=== PATIENT | male | born 1975 | race Caucasian/White ===

== ENCOUNTER 2017-06-08 17:57 | Inpatient (IN) | payer OTHER ==
[~2017-06-08] VITALS: Ht 185.4 cm; Wt 99.8 kg
--- NOTE | ~2017-06-08 | PA ---
Unit #: [id number] #: [id number] Patient: YESENIA ORO [id number] [facility] [address] [place] [address] [id number] MR#: [id number] NAME: YESENIA ORO ROOM: 61 Age: 41 Sex: M Admission Date: 06/08/2017 : 1975 Date of Assessment: 06/09/2017 Attending Physician: Yung Bailey M.D. Admitting Physician: Yung Bailey M.D. Primary Care Physician: Primary Care Physician No PSYCHIATRIC ASSESSMENT IDENTIFYING INFORMATION The patient is a 41-year-old white male admitted with suicidal ideation. CHIEF COMPLAINT None given. INFORMANT Chart. Patient cannot be aroused for interview. HISTORY OF PRESENT ILLNESS The patient is a 41-year-old white male admitted to the [address] [place] [address] Unit after he had presented to this facility yesterday voicing positive suicidal ideation. The patient reports that he has had 2 recent deaths in his family which may have been a cause for his increased depressive symptoms. He reports a history of multiple previous suicide attempts stating that he has attempted to hang himself and overdose in the past. He was reporting that he was planning to hang himself when seen yesterday. The patient's current medications include Celexa, Seroquel, and gabapentin. He has a history of treatment at this facility, and when last hospitalized here was notable for his almost incessant med-seeking demanding that he will be given a prescription for Klonopin. When seen today, the patient is sleeping soundly and cannot be aroused for further interview. PAST PSYCHIATRIC HISTORY The patient is status post traumatic brain injury and has issues with short-term memory. PAST MEDICAL HISTORY Noncontributory apart from the traumatic brain injury. MEDICATIONS Zofran, Celexa, Seroquel XR, and gabapentin. ALLERGIES None reported. FAMILY HISTORY Noncontributory. SOCIAL HISTORY The patient lives with his . He is considered disabled secondary to his history of "bipolar disorder," alcohol dependence, and traumatic brain Unit #: [id number] #: [id number] Patient: YESENIA ORO injury. MENTAL STATUS EXAMINATION Examination at this time reveals the patient to be a soundly sleeping white male. Multiple attempts to arouse the patient are dexter unsuccessful. ASSETS AND LIABILITIES The patient's assets are to be assessed. Liabilities: Lack of resources. DIAGNOSTIC IMPRESSION 1. Bipolar disorder, depressed phase, per patient's history. 2. Mood disorder unspecified. 3. History of traumatic brain injury. TREATMENT PLAN The patient remains hospitalized for safety and stabilization for now. We will continue the patient's previously prescribed medications including Celexa, Seroquel, and gabapentin. Once the patient is better able to participate in interview, we will discuss and look at possible medication changes including reinitiation of BuSpar, increase in Celexa, and/or Seroquel, etc. ESTIMATED LENGTH OF STAY 5 to 7 days. Dictated by... Yung Bailey M.D. STEVE/feli TD: 06/09/2017 13:43 JOB #: [id number] PSYCHIATRIC ASSESSMENT Page 1 of 1 X Yung Bailey MD X PSYCHIATRIC ASSESSMENT
--- NOTE | ~2017-06-08 | HP ---
Unit #: [id number] #: [id number] Patient: ANNETTA ORO [id number] [place] [address] [id number] MR#: [id number] NAME: ANNETTA ORO ROOM: [facility] Age: 41 Sex: M Admission Date: 06/08/2017 : 1975 Attending Physician: Yung Bailey M.D. Admitting Physician: Yung Bailey M.D. Primary Care Physician: Primary Care Physician No HISTORY AND PHYSICAL HISTORY OF PRESENT ILLNESS Annetta is a 41-year-old male admitted to [address] [place] [address] with depression and verbalizing wanting to hurt himself. PAST MEDICAL HISTORY 1. History of alcohol abuse. 2. History of illicit substance abuse. 3. High blood pressure. 4. MR. PAST SURGICAL HISTORY Nothing reported. ALLERGIES No known drug allergies. SOCIAL HISTORY Drinks frequently and has a history of illicit substance abuse to include methamphetamine. FAMILY HISTORY Medically noncontributory. REVIEW OF SYSTEMS He does not answer all questions appropriately. There are no reports of nausea, vomiting or diarrhea. He has had no cough or increased temperature. CURRENT MEDICATIONS 1. Milk of Magnesia p.r.n. 2. Maalox p.r.n. 3. Tylenol p.r.n. 4. Zofran p.r.n. 5. Seroquel XR 150 mg q.h.s. 6. Neurontin 800 mg q.i.d. 7. Nicotine patch 21 mg daily. 8. Celexa 20 mg daily. PHYSICAL EXAMINATION GENERAL: Alert, well-nourished, in no apparent distress. VITAL SIGNS: Blood pressure 110/70, heart rate 80, respirations 16, temperature 98.6. WEIGHT: 220. Unit #: [id number] #: [id number] Patient: ANNETTA ORO HEIGHT: 6 feet 1 inch. SKIN: Warm and dry without rash or lesion. HEENT: Normocephalic. TMs not viewed. Oral and nasal passages clear. Conjunctivae clear. PERRLA. EOMs intact. NECK: Supple without lymphadenopathy or thyromegaly. HEART: Regular rate and rhythm without murmur. LUNGS: Clear. ABDOMEN: Soft, nontender. : Not done. EXTREMITIES: No evidence of cyanosis, clubbing or edema. Moves all without focal deficit. NEUROLOGICAL: Grossly within normal limits. Cranial Nerves: II: Visual mario are intact. III, IV AND : Extraocular movements are intact. Pupils are equal, round and reactive to light. V: Facial sensation is grossly normal. VII: Facial movements and expression are normal. VIII: Auditory acuity grossly intact. IX, X: Uvula is midline. Phonation is normal. XI: Patient shrugs shoulders and turns head normally. XII: Tongue protrudes in the midline. Sensory and Motor Function: Sensory and motor sensation is grossly normal. Motor: moves all extremities well. Coordination: Gait is normal. Deep Tendon Reflexes: Intact. IMPRESSION Psychiatric admission. RECOMMENDATIONS PSYCHIATRIC: Per psychiatrist. MEDICAL: See no contraindication to participate in facility's activities. MEDICAL PROGNOSIS Good. MEDICAL CONDITION Stable. Dictated by... Barbara Dickerson P.A.-C. for Landon Madrid/lanie TD: 06/09/2017 20:00 JOB #: [id number] HISTORY AND PHYSICAL Page 1 of 1 X Barbara Dickerson HISTORY AND PHYSICAL
--- NOTE | ~2017-06-08 | DS ---
Unit #: [id number] #: [id number] Patient: YESENIA ORO [id number] [facility] [address] [place] [address] [id number] I MR#: [id number] NAME: YESENIA ORO ROOM: 61 Age: 41 Sex: M Admission Date: 06/08/2017 : 1975 Discharge Date: 06/10/2017 Attending Physician: Yung Bailey M.D. Primary Care Physician: Primary Care Physician No DISCHARGE SUMMARY REASON FOR ADMISSION The patient is a 41-year-old white male admitted complaining of suicidal ideation. HOSPITAL COURSE The patient was admitted to the [facility] Unit and placed on suicide precautions. She was continued on previously prescribed medications including Celexa, Seroquel, Neurontin, and Vistaril. The patient could not be aroused for interview on his first day of hospitalization. Later on that date, the patient requested discharge from the hospital, but have not been interviewed by this physician, and was not felt appropriate for the patient to be discharged at that point. He agreed to remain in the hospital, and when seen by this physician on 06/10/2017 denied suicidal ideation, and requested discharge from the hospital. It is notable that the patient was not during this hospitalization med-seeking as he was during his previous stay in the hospital and was generally pleasant and cooperative in his interactions with peers and staff. Discharged was ordered as per the patient's request on 06/10/2017. FINAL DIAGNOSES 1. Bipolar disorder, depressed phase, per patient's history. 2. Mood disorder unspecified. 3. History of traumatic brain injury. DISPOSITION ON DISCHARGE The patient was discharged on the following medications: 1. Vistaril 50 mg q. 6 hours p.r.n. anxiety. 2. Seroquel XR 150 mg daily for mood stabilization. 3. Celexa 20 mg daily for depression. 4. Neurontin 800 mg 4 times daily for mood stabilization. DIET AND ACTIVITY No dietary or physical restrictions were placed on the patient at the time of discharge. FOLLOWUP Followup will take place through the auspices of [facility] resources. Dictated by... Yung Bailey M.D. Unit #: [id number] #: [id number] Patient: SHORTYYESENIA MANZANO TD: 06/10/2017 11:17 JOB #: [id number] DISCHARGE SUMMARY Page 1 of 1 X Yung Bailey MD DISCHARGE SUMMARY
[~2017-06-08 17:57] MED LIST: ALBUTEROL17 GM INH; AMOXICILLIN500 M1 PO; BENZONATATE PO; BUSPAR30 MG PO; CHLORPROMAZINE100 MG PO; DEPAKOTE PO; EFFEXOR; FLEXERIL PO; GABAPENTIN800 MG PO; KLONOPIN PO; LORTAB 10-5001 EACH PO; MEDROL PO; NEURONTIN; PRISTIQ50 MG PO; SEROQUEL PO; THORAZINE10 MG PO; TRAZODONE PO; TRILEPTAL; TRILEPTAL PO; TRILEPTAL600 MG PO; VICODIN 5/500 T1 TAB PO; WELLBUTRIN
[2017-06-09 12:45] LABS: BASOPHIL% 0.4 % (0-2.5); EOSINOPHIL# 0.2 X10e3 (0-0.7); EOSINOPHIL% 2.3 % (0.0-7.0); HEMATOCRIT 43.9 % (38.0-50.0); HEMOGLOBIN 15.1 gm/dL (13.0-16.0); LYMPHOCYTE# 1.7 X10e3 (1.0-3.5); LYMPHOCYTE% 16.7 % (17.0-45.0); MEAN CELL VOLUME 87.9 FL (83-96); MEAN CORPUSCULAR HEMOGLOBIN 30.2 PG (28-34); MEAN CORPUSCULAR HGB CONC 34.4 g/dL (30-36); MEAN PLATELET VOLUME 9.1 FL (6.5-11.5); MONOCYTE# 0.4 X10e3 (0-1.0); MONOCYTE% 3.9 % (3.0-12.0); NEUTROPHIL# 7.9 X10e3 (1.5-7.1); NEUTROPHIL% 76.7 % (40-75); PLATELET COUNT 193 X10e3 (140-420); RED CELL DISTRIBUTION WIDTH 14.2 % (11.0-15.5); WHITE BLOOD COUNT 10.3 X10e3 (4.0-10.5)
[2017-06-09 12:48] LABS: DIFF IND NO
[2017-06-09 13:07] LABS: ALBUMIN SERUM 3.6 g/dL (3.5-5.0); BILIRUBIN,TOTAL 0.5 mg/dL (0.2-2.0); CALCIUM SERUM 9.1 mg/dL (8.4-10.2); GLOM FILT RATE Estimated 91.8 mL/min (>60); POTASSIUM 4.1 mmol/L (3.5-5.1); PROTEIN TOTAL SERUM 6.1 g/dL (6.0-8.3)
== END 2017-06-10 13:10 | disposition home or self-care (01) | DRG 885 ==
LOC: P2L 19:43
PROVIDERS: Specialist
DX: F31.30 Bipolar disorder, current episode depressed, mild or moderate severity, unspecified (principal); Z87.820 Personal history of traumatic brain injury
CPT/HCPCS: 80053; 85025